=== PATIENT | female | born 1950 | race Caucasian/White ===

== ENCOUNTER 2016-06-24 12:49 | Outpatient (CLI) | payer BC | END 2016-06-24 19:54 | disposition home or self-care (01) | LOC: SMA 12:49 | PROVIDERS: ATTEND Family Medicine | DX: Z12.31 Encounter for screening mammogram for malignant neoplasm of breast (principal) | CPT/HCPCS: 77067; G0202 ==

== ENCOUNTER 2018-02-14 13:22 | Outpatient (CLI) | payer BC, OTHER | END 2018-02-14 20:53 | disposition home or self-care (01) | LOC: SMA 13:22 | PROVIDERS: ATTEND Family Medicine | DX: Z12.31 Encounter for screening mammogram for malignant neoplasm of breast (principal) | CPT/HCPCS: 77067 ==